=== PATIENT | male | born 1970 | race Caucasian/White ===

== ENCOUNTER → 2020-10-10 13:52 | Outpatient (BNVA) | payer OTHER, SELFPAY | PROVIDERS: PCP Internal Medicine; Visit Provider Hospitalist | DX: R91.8 Other nonspecific abnormal finding of lung field (principal); R06.00 Dyspnea, unspecified; R07.89 Other chest pain; M25.511 Pain in right shoulder; G89.29 Other chronic pain | CPT/HCPCS: 90686 ==

== ENCOUNTER 2020-10-22 10:06 | Outpatient (REF) | payer OTHER, SELFPAY ==
--- NOTE | 2020-10-22 10:13 | XR_ITS ---
EXAMINATION: XR SHOULDER, RIGHT CLINICAL INFORMATION: Right shoulder pain COMPARISON: None TECHNIQUE: Three views of the right shoulder. FINDINGS: There is no evidence of acute fracture or dislocation of the right shoulder. No calcific tendinitis. Mild spurring of the glenohumeral joint without joint space narrowing. No widening of the coracoid clavicular space. XR/XR shoulder RT min 2V IMPRESSION: No significant abnormality of the right shoulder.
== END 2020-10-22 10:07 | disposition home or self-care (01) ==
LOC: HO.HOSX 10:06
PROVIDERS: PCP Internal Medicine; Visit Provider Orthopaedic Surgery
DX: M25.511 Pain in right shoulder (principal)
CPT/HCPCS: 73030

== ENCOUNTER 2020-10-27 14:51 | Outpatient (REF) | payer OTHER, SELFPAY ==
--- NOTE | 2020-10-27 14:54 | CT_ITS ---
EXAMINATION: CT CHEST WITHOUT CONTRAST CLINICAL INFORMATION: Abnormal lung findings. COMPARISON: None TECHNIQUE: Multidetector volumetric CT imaging of the chest was done. Axial MIP volume rendering provided. Sagittal and coronal reformatted images were obtained. This CT examination was performed using dose optimization techniques as appropriate, variously including the following: *Automated exposure control *Adjustment of mA and/or kV according to patient size (this includes techniques or standardized protocols for targeted exams where dose is matched to indication/reason for exam; i.e. extremities or head) *Use of iterative reconstruction technique DLP: 179 mGy-cm FINDINGS: [employer]: Hyperinflated lungs without acute process. LUNGS: The lungs are well expanded with a right azygos fissure and azygos lobe in the right lung apex. There is a punctate 2 mm subpleural calcified nodule in right upper lobe axial image 71/8 and a noncalcified 1 mm nodule right upper lobe axial image 64/8 There are no pulmonary nodules, mass or ground-glass density. No acute pneumonic consolidation seen. Minimal atelectatic changes are seen in the lingula. MEDIASTINUM: The thyroid lobes are symmetrical and normal. Central trachea and the bronchi are widely patent. Heart size and the great vessels are normal caliber. There are small shotty lymph nodes in the mediastinum. No pericardial effusion seen. PLEURA: There is no pleural effusion. No pleural mass or thickening. AXILLA: There are benign bilateral axillary lymph nodes. The chest wall appears unremarkable. UPPER ABDOMEN: There is diffuse fatty infiltration of liver with no focal lesion seen. The gallbladder has been surgically removed. Visualized spleen, pancreas and bilateral adrenal glands unremarkable. OSSEOUS STRUCTURES: No lytic or sclerotic process seen. CT/CT chest wo con IMPRESSION: Unremarkable chest exam. Diffuse fatty infiltration of liver. Gallbladder has been surgically removed.
== END 2020-10-27 14:52 | disposition home or self-care (01) ==
LOC: HO.CT 14:51
PROVIDERS: Visit Provider Hospitalist
DX: R07.89 Other chest pain (principal); R91.8 Other nonspecific abnormal finding of lung field; R06.00 Dyspnea, unspecified
CPT/HCPCS: 71250

== ENCOUNTER → 2021-06-29 09:44 | Outpatient (BNVA) | payer OTHER, SELFPAY | PROVIDERS: PCP Nurse Practitioner Family; Visit Provider Hospitalist ==